=== PATIENT | female | born 1975 | race Caucasian/White ===

== ENCOUNTER 2020-09-12 17:19 | Emergency (ER) | payer OTHER ==
[~2020-09-12] VITALS: Ht 167.6 cm; Wt 68.0 kg
--- NOTE | 2020-09-12 17:51 | EKG ---
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
--- NOTE | 2020-09-12 17:52 | RAD ---
Chest AP portable at 1744: Reason for examination: Hypokalemia. The heart size is normal. Mediastinum is unremarkable. Lung lara are clear. No acute bony abnormali ties are seen. Impression: No acute cardiopulmonary disease. Electronically signed by: Patricia Gresham MD (09/12/2020 5:49 PM) CHRISTY
[2020-09-12 18:15] LABS: ALBUMIN 3.4 g/dL (3.4-5.0); CALCIUM 7.9 mg/dL (8.5-10.1); CREATININE 0.7 mg/dL (0.6-1.0); GFR 90.9; TOTAL BILIRUBIN 0.4 mg/dL (0.2-1.0); TOTAL PROTEIN 6.9 g/dL (6.4-8.2)
--- NOTE | 2020-09-12 18:15 | PHYS DOC ---
Past History Past Medical History: Anemia, Asthma, Other Additional Past Medical Histor: hypokalemia (MATT KAY APRN) Past Surgical History: Other Additional Past Surgical Histo: mini gastric bypass (MATT KAY APRN) Alcohol Use: None (MATT KAY APRN) General Adult EDM: Chief Complaint: HYPOKALEMIA HPI: HPI: Patient is a 44-year-old adult female who presents with a low potassium. Patient states that she was seeing her BUILDING ANALYST/SUPERVISOR today and had a basic lab draw completed. Her OB called her at 5 PM today and told her potassium was 2.6 and wanted her evaluated in the emergency room. Patient states that she has had issues with malnutrition hypokalemia and iron deficiency anemia since her bariatric surgery in 2017. Patient reports that she takes potassium daily. Patient states "I do have diarrhea a few times a week". Patient denies having any symptoms or pain. Patient has history of asthma, GERD, and malabsorption. (MATT KAY APRN) Review of Systems: Review of Systems: Constitutional: Denies fever or chills Eyes: Denies change in visual acuity HENT: Denies nasal congestion or sore throat Respiratory: Denies cough or shortness of breath Cardiovascular: Denies chest pain or edema GI: Denies abdominal pain, nausea, vomiting, bloody stools or diarrhea : Denies dysuria Musculoskeletal: Denies back pain or joint pain Integument: Denies rash Neurologic: Denies headache, focal weakness or sensory changes Endocrine: Denies polyuria or polydipsia Lymphatic: Denies swollen glands Psychiatric: Denies depression or anxiety (MATT KAY APRN) Allergies: Allergies: Allergies Coded Allergies Type Severity Reaction Last Updated Verified pseudoephedrine Allergy Intermediate 09/12/20 Yes [place] And Derivatives Allergy Unknown 09/12/20 Yes promethazine Allergy Unknown 09/12/20 Yes sumatriptan Allergy Unknown 09/12/20 Yes (MATT KAY APRN) Physical Exam: PE: Constitutional: Well developed, well nourished, no acute distress, non-toxic appearance. [] HENT: Normocephalic, atraumatic, bilateral external ears normal, oropharynx moist, no oral exudates, nose normal. [] Eyes: PERRLA, EOMI, conjunctiva normal, no discharge. [] Neck: Normal range of motion, no tenderness, supple, no stridor. [] Cardiovascular:Heart rate regular rhythm, no murmur [] Lungs & Thorax: Bilateral breath sounds clear to auscultation [] Abdomen: Bowel sounds normal, soft, no tenderness, no masses, no pulsatile masses. [] Skin: Warm, dry, no erythema, no rash. [] Back: No tenderness, no CVA tenderness. [] Extremities: No tenderness, no cyanosis, no clubbing, ROM intact, no edema. [] Neurologic: Alert and oriented X 3, normal motor function, normal sensory function, no focal deficits noted. [] Psychologic: Affect normal, judgement normal, mood normal. [] (MATT KAY APRN) Current Patient Data: Vital Signs: Vital Signs Date Time Temp Pulse Resp B/P (MAP) Pulse Ox O2 Delivery O2 Flow Rate FiO2 09/12/20 17:31 98.7 73 112/54 (73) 99 (MATT KAY APRN) EKG: EKG: Sinus rhythm. Heart rate 64 bpm. Intervals normal. [place] normal. Otherwise normal EKG. [] (MATT KAY APRN) Radiology/Procedures: Radiology/Procedures: []Chest AP portable at 1744: Reason for examination: Hypokalemia. The heart size is normal. Mediastinum is unremarkable. Lung lara are clear. No acute bony abnormalities are seen. Impression: No acute cardiopulmonary disease. Electronically signed by: Patricia Gresham MD (09/12/2020 5:49 PM) [facility] (MATT KAY APRN) Heart Score: Risk Factors: Risk Factors: DM, Current or recent (<one month) smoker, HTN, HLP, family history of CAD, obesity. Risk Scores: Score 0 - 3: 2.5% MACE over next 6 weeks - Discharge Home Score 4 - 6: 20.3% MACE over next 6 weeks - Admit for Clinical Observation Score 7 - 10: 72.7% MACE over next 6 weeks - Early Invasive Strategies (MATT KAY APRN) Course & Med Decision Making: Course & Med Decision Making Pertinent Labs and Imaging studies reviewed. (See chart for details) []Patient is a 44-year-old adult female who presents with a low potassium. Patient states that she was seeing her BUILDING ANALYST/SUPERVISOR today and had a basic lab draw completed. Her OB called her at 5 PM today and told her potassium was 2.6 and wanted her evaluated in the emergency room. Patient states that she has had issues with malnutrition hypokalemia and iron deficiency anemia since her bariatric surgery in 2017. Patient reports that she takes potassium daily. Patient states "I do have diarrhea a few times a week". Patient denies having any symptoms or pain. Patient has history of asthma, GERD, and malabsorption. Potassium was 2.7. Will give 40 mEq of potassium in the emergency room. I will have patient follow-up with her primary care physician for further management of her hypokalemia. Patient states that this is a chronic issue and the doctors are unsure as to what is causing it. Patient does not have any symptoms. EKG is normal sinus rhythm. All other labs are unremarkable. (MATT KAY APRN) Dragon Disclaimer: Dragon Disclaimer: This electronic medical record was generated, in whole or in part, using a voice recognition dictation system. (MATT KAY APRN) Departure Departure: Impression: Primary Impression: Hypokalemia Disposition: 01 DC HOME SELF CARE/HOMELESS Condition: GOOD Referrals: SRIKANTH CHILD MD (PCP) Patient Instructions: Hypokalemia-Brief Additional Instructions: He was seen in the emergency room today for hypokalemia after being sent by her BUILDING ANALYST/SUPERVISOR. Your potassium was 2.7 in the emergency room. You were given 40 mEq of potassium. Please follow-up with your primary care physician in the next couple of days to discuss further management. EMERGENCY DEPARTMENT GENERAL DISCHARGE INSTRUCTIONS Thank you for coming to [facility] (ED) today and trusting us with you care. We trust that you had a positivie experience in our Emergency Department. If you wish to speak to the department management, you may call the director at [phone]. YOUR FOLLOW UP INSTRUCTIONS ARE FOLLOWS: 1. Do you have a private Doctor? If you do not have a private doctor, please ask for a resource list of physicians or clinics that may be able to assist you with follow up care. 2. The Emergency Physician has interpreted your x-rays. The X-Ray specialist will also review them. If there is a change in the findings, you will be notified in 48 hours when at all possible. 3. A lab test or culture has been done, your results will be reviewed and you will be notified if you need a change in treatment. ADDITIONAL INSTRUCTIONS AND INFORMATION: 1. Your care today has been supervised by a physician who is specially trained in emergency care. Many problems require more than one evaluation for a complete diagnosis and treatment. We recommend that you schedule your follow up appointment as recommended to ensure complete treatment of you illness or injury. If you are unable to obtain follow up care and continue to have a problem, or if your condition worsens, we recommend that you return to the ED. 2. We are not able to safely determine your condition over the phone nor are we able to give sound medical advice over the phone. For these safety reasons, if you call for medical advice we will ask you to come to the ED for further evaluation. 3. If you have any questions regarding these discharge instructions please call the ED at [phone]. SAFETY INFORMATION: In the interest of safety, wellness, and injury prevention; we encourage you to wear your sealbelt, if you smoke; quite smoking, and we encourage family to use a protective helmet for bicycling and other sporting events that present an increased risk for head injury. IF YOUR SYMPTOMS WORSEN OR NEW SYMPTOMS DEVELOP, OR YOU HAVE CONCERNS ABOUT YOUR CONDITION; OR IF YOUR CONDITION WORSENS WHILE YOU ARE WAITING FOR YOUR FOLLOW UP APPOINTMENT; EITHER CONTACT YOUR PRIMARY CARE DOCTOR, THE PHYSICIAN WHOSE NAME AND NUMBER YOU WERE GIVEN, OR RETURN TO THE ED IMMEDIATELY. Attending Co-Sign Attending Co-Sign The patient was seen and interviewed as well as examined at the bedside. The chart was reviewed. The case was discussed. Agree with the plan of care. (SANDRA HARRIS MD) MATT KAY APRN Sep 12, 2020 18:15 SANDRA HARRIS MD Sep 13, 2020 04:15
[2020-09-12 18:25] LABS: BASO # 0.1 x10^3/uL (0.0-0.2); BASO % 1 % (0-3); EOS % 1 % (0-3); HEMATOCRIT 37.7 % (36.0-47.0); HEMOGLOBIN 11.4 g/dL (12.0-15.5); LYMPH # 1.4 x10^3/uL (1.0-4.8); LYMPH % 26 % (24-48); MEAN CORPUSCULAR HEMOGLOBIN 24 pg (25-35); MEAN CORPUSCULAR HGB CONC 30 g/dL (31-37); MEAN CORPUSCULAR VOLUME 78 fL (79-100); MONO # 0.4 x10^3/uL (0.0-1.1); MONO % 7 % (0-9); NEUT # 3.4 x10^3uL (1.8-7.7); NEUT % 64 % (31-73); PLATELET COUNT 259 x10^3/uL (140-400); POTASSIUM 2.7 mmol/L (3.5-5.1); RED BLOOD COUNT 4.81 x10^6/uL (3.50-5.40); RED CELL DISTRIBUTION WIDTH 22.1 % (11.5-14.5); WHITE BLOOD COUNT 5.4 x10^3/uL (4.0-11.0)
[2020-09-12 18:45] LABS: ANISOCYTOSIS MOD; HYPOCHROMIA SLIGHT; ROULEAUX PRESENT
[2020-09-12] MEDS ORDERED: POTASSIUM CHLORIDE 20 MEQ TABLET.ER. PO ONE (18:45)
[2020-09-12 18:46] LABS: PLT ESTIMATE ADEQUATE (ADEQUATE)
[2020-09-12 19:00] VITALS: BP 106/62
== END 2020-09-12 19:18 | disposition home or self-care (01) ==
LOC: ER 17:19
DX: E87.6 Hypokalemia (principal); J45.909 Unspecified asthma, uncomplicated; E46 Unspecified protein-calorie malnutrition; Z86.2 Personal history of diseases of the blood and blood-forming organs and certain disorders involving the immune mechanism; Z68.24 Body mass index [BMI] 24.0-24.9, adult; Z98.84 Bariatric surgery status; Z88.8 Allergy status to other drugs, medicaments and biological substances; Z91.018 Allergy to other foods
CPT/HCPCS: 36415; 71045; 80053; 83735; 85025; 93005; 99285